=== PATIENT | male | born 1955 | race Caucasian/White ===

== ENCOUNTER 2017-12-13 12:12 | Inpatient (IN) | payer MEDICARE, OTHER ==
[~2017-12-13] VITALS: Ht 182.9 cm; Wt 98.5 kg
[2017-12-13] MEDS ORDERED: SODIUM CHLORIDE 0.9% 1,000 ML IV ONE (12:27)
[2017-12-13] MEDS ORDERED: ONDANSETRON HCL 4 MG/2 ML VIAL IV ONE (12:30)
[2017-12-13] MEDS ORDERED: MORPHINE SULFATE 4 MG/ML SYR/VIAL IV ONE (12:30)
[2017-12-13] MEDS ORDERED: diphenhdrAMINE HCL 50 MG/1 ML VL IV ONE (13:45)
[2017-12-13] MEDS ORDERED: HYDROcodone-ACET 5/325MG TAB PO PRN (14:00)
[2017-12-13] MEDS ORDERED: ONDANSETRON HCL 4 MG/2 ML VIAL IV PRN (14:00)
[2017-12-13] MEDS ORDERED: MORPHINE SULFATE 4 MG/ML SYR/VIAL IV PRN (14:00)
[2017-12-13] MEDS ORDERED: FAMOTIDINE 20 MG TAB PO ONE (14:00)
[2017-12-13 14:04] LABS: INR 0.95 (0.9-1.15); Partial Thromboplastin Time 25.3 sec (22.64-33.71); Prothrombin Time 10.4 sec (9.37-12.3)
[2017-12-13 14:06] LABS: Basophils # (auto) 0 uL; Basophils % (auto) 0.5 % (0.0-2.0); Eosinophils # (auto) 0.1 uL; Hematocrit 45.3 % (41.0-53.0); Hemoglobin 15.3 g/dL (13.5-17.5); Lymphocytes # (auto) 1.4 uL; Lymphocytes % (auto) 13.7 % (10.0-50.0); Mean Corpuscular Hemoglobin 30.5 pg (28.0-32.0); Mean Corpuscular Hgb Conc. 33.8 g/dL (32.0-36.0); Mean Corpuscular Volume 90.4 fL (80.0-100.0); Monocytes # (auto) 0.8 uL; Neutrophils # (auto) 8.1 uL; Neutrophils % (auto) 76.8 % (37.0-80.0); Platelet Count (auto) 231 10^3/uL (140-450); Red Blood Cells 5.02 10^6/uL (4.5-5.90); Red Cell Distribution Width 13.6 % (11.8-14.3); White Blood Cell 10.5 10^3/uL (4.4-10.8)
[2017-12-13 14:15] LABS: Albumin 3.6 g/dL (3.4-5.0); BUN/Creatinine Ratio 13.6; Calcium 8.6 mg/dL (8.5-10.1); Magnesium 1.8 mg/dL (1.6-2.6); Potassium 4.1 mmol/L (3.5-5.1)
[2017-12-13 14:20] LABS: Bilirubin, Total 0.9 mg/dL (0.2-1.0); Total Protein 6.9 g/dL (6.4-8.2)
[2017-12-13] MEDS: SODIUM CHLORIDE 0.9% 1,000 ML IV SCH (14:25)
[2017-12-13] MEDS ORDERED: LISI-275 PO (15:51)
[2017-12-13] MEDS ORDERED: ATOR20TA50 PO (15:51)
[2017-12-13 17:09] VITALS: BP 132/80
[2017-12-13 20:00] VITALS: BP 143/71
[2017-12-13 21:07] LABS: Urine Bacteria NONE SEEN /hpf (None Seen); Urine Blood TRACE /uL (Negative); Urine Mucus FEW (None Seen); Urine Specific Gravity 1.013 (1.001-1.035); Urine WBC 2 /hpf (0 - 3)
[2017-12-13 22:00] VITALS: BP 143/71
[2017-12-13] MEDS: ATORVASTATIN 20 MG TAB PO SCH (22:06)
[2017-12-13] MEDS: METOPROLOL TARTRATE 25 MG TAB PO SCH (22:07)
[2017-12-13] MEDS: FAMOTIDINE 20 MG TAB PO SCH (22:07)
[2017-12-14] MEDS: SODIUM CHLORIDE 0.9% 1,000 ML IV SCH (03:20)
[2017-12-14 05:00] VITALS: BP 130/87
[2017-12-14] MEDS: MORPHINE SULFATE 4 MG/ML SYR/VIAL IV PRN ×3 (06:50→08:54)
[2017-12-14 06:56] LABS: BUN/Creatinine Ratio 9.2; Calcium 8.3 mg/dL (8.5-10.1); Potassium 4.4 mmol/L (3.5-5.1)
[2017-12-14] MEDS: NITROGLYCERIN 0.4 MG SL TAB SL PRN ×3 (07:11→07:26)
[2017-12-14] MEDS ORDERED: diphenhdrAMINE HCL 50 MG/1 ML VL ONE (07:44)
[2017-12-14] MEDS ORDERED: ENOXAPARIN SOD 100 MG/1 ML SYRINGE SC ONE (07:45)
[2017-12-14] MEDS ORDERED: LORazepam 2MG/ML-1ML VIAL IV ONE (07:45)
[2017-12-14] MEDS ORDERED: diphenhdrAMINE HCL 50 MG/1 ML VL IV ONE (07:45)
[2017-12-14] MEDS ORDERED: LORazepam 2MG/ML-1ML VIAL ONE (07:47)
[2017-12-14 08:00] VITALS: BP 145/80
[2017-12-14 08:11] LABS: Alcohol, Urine < 3.0 mg/dL (0-5); Amphetamine Screen, Urine NEGATIVE (NEGATIVE); Barbiturate Scree,Urine NEGATIVE (NEGATIVE); Benzodiazephine Screen, Urine NEGATIVE (NEGATIVE); Cannabinoid Screen, Urine POSITIVE (NEGATIVE); Cocaine Screen, Urine NEGATIVE (NEGATIVE); Opiate Scree,Urine POSITIVE (NEGATIVE); Phencyclidine Screen, Urine NEGATIVE (NEGATIVE)
[2017-12-14] MEDS ORDERED: ASPirin-EC 81 mg tab PO ONE (09:15)
[2017-12-14] MEDS ORDERED: NITROGLYCERIN 50MG/250ML 250 ML IV SCH (09:30)
[2017-12-14] MEDS: METOPROLOL TARTRATE 25 MG TAB PO SCH ×2 (10:00→21:50)
[2017-12-14] MEDS: FAMOTIDINE 20 MG TAB PO SCH ×2 (10:00→21:49)
[2017-12-14] MEDS ORDERED: LIDOCAINE HCL 2 %PF INJ 10ML AMP IJ ONE (10:08)
[2017-12-14] MEDS ORDERED: IODIXANOL 320MG/ML 100ML BTL IV ONE (10:08)
[2017-12-14] MEDS ORDERED: ANGIOMAX 250 MG VIAL IV ONE (10:38)
[2017-12-14] MEDS ORDERED: MIDAZOLAM HCL 1MG/1ML-2 ML VIAL ONE ×2 (10:38→12:05)
[2017-12-14] MEDS ORDERED: fentaNYL CITRATE 100 MCG/2 ML VL ONE (10:38)
[2017-12-14] MEDS ORDERED: SODIUM CHL 0.9% 50 ML ONE (10:38)
[2017-12-14] MEDS ORDERED: VERAPAMIL 2.5MG/ML INJ 2ML VIAL IV ONE (10:43)
[2017-12-14] MEDS ORDERED: HEPARIN 1,000 UNITS/ml 1ML VIAL ONE (11:02)
[2017-12-14] MEDS ORDERED: IOHEXOL 350 MG/ML 100ML IJ ONE ×3 (11:20→12:20)
[2017-12-14] MEDS ORDERED: PRASUGREL HCL 10 MG TAB ONE (11:35)
[2017-12-14] MEDS ORDERED: EPINEPHrine HCL 1 MG/10 ML SYRG ONE (11:39)
[2017-12-14] MEDS ORDERED: ATROPINE SULF 0.5 MG/5ML SYR ONE (11:40)
[2017-12-14] MEDS ORDERED: EPTIFIBATIDE DRIP(0.75MG/ML) 0 ML IV ONE (11:42)
[2017-12-14] MEDS ORDERED: EPTIFIBATIDE INJ (2MG/ML) 10ML VIAL IV ONE (11:42)
[2017-12-14] MEDS: LISINOPRIL 10 MG TAB PO SCH (13:15)
[2017-12-14 15:00] VITALS: BP 118/76
[2017-12-14 16:06] VITALS: BP 125/76
[2017-12-14 20:30] VITALS: BP 119/70
[2017-12-14] MEDS: ATORVASTATIN 20 MG TAB PO SCH (21:50)
[2017-12-14 23:36] VITALS: BP 115/49
[2017-12-15 04:00] VITALS: BP 147/99
[2017-12-15 05:19] LABS: Basophils # (auto) 0.1 uL; Basophils % (auto) 0.8 % (0.0-2.0); Eosinophils # (auto) 0.1 uL; Eosinophils % (auto) 0.8 % (0.0-7.0); Hematocrit 42.3 % (41.0-53.0); Hemoglobin 14.5 g/dL (13.5-17.5); Lymphocytes # (auto) 2.2 uL; Mean Corpuscular Hgb Conc. 34.4 g/dL (32.0-36.0); Mean Corpuscular Volume 90.1 fL (80.0-100.0); Monocytes # (auto) 1.2 uL; Monocytes % (auto) 11.7 % (0.0-12.0); Neutrophils # (auto) 6.5 uL; Neutrophils % (auto) 64.7 % (37.0-80.0); Nucleated Red Blood Cells % 0.1 %; Platelet Count (auto) 222 10^3/uL (140-450); Red Blood Cells 4.69 10^6/uL (4.5-5.90); Red Cell Distribution Width 13.2 % (11.8-14.3); White Blood Cell 10.1 10^3/uL (4.4-10.8)
[2017-12-15 05:35] LABS: BUN/Creatinine Ratio 10.1; Calcium 8.9 mg/dL (8.5-10.1); Potassium 3.9 mmol/L (3.5-5.1)
[2017-12-15 08:00] VITALS: BP 108/72
[2017-12-15] MEDS ORDERED: PRASUGREL HCL 10 MG TAB PO SCH (10:00)
[2017-12-15] MEDS ORDERED: ASPirin 81 mg TAB PO SCH (10:00)
[2017-12-15] MEDS: FAMOTIDINE 20 MG TAB PO SCH (10:14)
[2017-12-15] MEDS: METOPROLOL TARTRATE 25 MG TAB PO SCH (10:14)
[2017-12-15] MEDS: LISINOPRIL 10 MG TAB PO SCH (11:36)
[2017-12-15 11:50] VITALS: BP 112/64
[2017-12-15 15:50] VITALS: BP 106/42
[2017-12-15 19:53] VITALS: BP 102/57
== END 2017-12-15 20:15 | disposition short-term general hospital (02) | DRG 247 ==
LOC: ER 12:12 → EDBD 12:12 → TELE 12:13 → TELE-WESTW 15:16 → ICU CENTRL 12-14 15:01 → DOU IN ICU 12-14 15:54
PROVIDERS: ADMIT Internal Medicine; ATTEND Internal Medicine
PROC: 4A023N7 Measurement of Cardiac Sampling and Pressure, Left Heart, Percutaneous Approach (ICD-10-PCS; principal; 2017-12-14)
PROC: 027034Z Dilation of Coronary Artery, One Artery with Drug-eluting Intraluminal Device, Percutaneous Approach (ICD-10-PCS; 2017-12-14)
PROC: B2111ZZ Fluoroscopy of Multiple Coronary Arteries using Low Osmolar Contrast (ICD-10-PCS; 2017-12-14)
PROC: B2151ZZ Fluoroscopy of Left Heart using Low Osmolar Contrast (ICD-10-PCS; 2017-12-14)
DX: I21.4 Non-ST elevation (NSTEMI) myocardial infarction (principal); E11.9 Type 2 diabetes mellitus without complications; E66.9 Obesity, unspecified; E78.5 Hyperlipidemia, unspecified; F17.210 Nicotine dependence, cigarettes, uncomplicated; I10 Essential (primary) hypertension; I25.10 Atherosclerotic heart disease of native coronary artery without angina pectoris; Z79.82 Long term (current) use of aspirin; Z79.899 Other long term (current) drug therapy; Z86.73 Personal history of transient ischemic attack (TIA), and cerebral infarction without residual deficits
CPT/HCPCS: 36415; 71045; 80048; 80053; 80061; 80307; 81001; 83735; 83880; 84484; 85025; 85610; 85730; 92928; 93005; 93306; 93458; 94761; 96361; 96374; 96375; 99152; 99291; C1874; J0461; J2250; J2405; Q9967

== ENCOUNTER 2024-08-31 17:48 | Emergency (ER) | payer OTHER ==
[~2024-08-31] VITALS: Ht 185.4 cm; Wt 82.0 kg
[~2024-08-31 17:48] MED LIST: ATOR20TA50 PO; LISI-275 PO
--- NOTE | 2024-08-31 18:38 | ED.PDOC ---
History of Present Illness HPI Comments 68-year-old male who comes in with chief complaint of some dizziness. The patient states that the symptoms started approximately 25 minutes prior to arrival. The patient states that he was standing and then got very very dizzy. 911 was called. When the paramedics arrived, the patient's blood pressure was 5 7/40 on scene. He denies any headache or blurred vision. An IV Hep-Lock was established. The patient was given 400 cc of normal saline and his blood pressure came up to 111/60. This time, the patient denies any other complaints of chest pain or shortness for breath. Upon arrival, the patient was still feeling somewhat weak. Chief Complaint: Dizziness Time Seen by MD: 17:50 Reviewed Notes: Nurses Notes, [employer] Product Manager Notes, Medications, Allergies (See list) Allergies: Coded Allergies: Pseudoephedrine (Verified Allergy, Severe, RASH, 12/13/17) Triprolidine (Verified Allergy, Severe, RASH, 12/13/17) Home Meds Reported Medications Atorvastatin Calcium (ATORVASTATIN CALCIUM) 20 Mg Tab, 1 TAB PO DAILY, #30 TAB 5 Refills 12/13/17 Lisinopril (Lisinopril) 5 Mg Tab, 5 MG PO DAILY for 30 Days, MG 12/13/17 Information Source: Patient, Emergency Med Personnel Mode of Arrival: EMS Severity: Moderate Timing: Minutes Duration: Since onset Prehospital treatment: Accucheck (136), Manager Cath Lab, IVF, Other (400 cc of normal saline) Associated signs and symptoms No chest pain or shortness for breath Past Medical History PAST MEDICAL HISTORY: CVA, DM, High Lipids, HTN, DE, TIA Past Medical History (Other): Prostate cancer, neuropathy Surgical History: Hernia Repair Family History Family History: Family hx of Cancer Social History Smoker: Cigarettes Alcohol: Occasionally Drugs: Marijuana Lives In: Home Constitutional: denies: chills, diaphoresis, fatigue, fever, malaise, sweats, weakness, others EENTM: denies: blurred vision, double vision, ear bleeding, ear discharge, ear drainage, ear pain, ear ringing, eye pain, eye redness, hearing loss, mouth pain, mouth swelling, nasal discharge, nose bleeding, nose congestion, nose pain, photophobia, tearing, throat pain, throat swelling, voice changes, others Respiratory: denies: cough, hemoptysis, orthopnea, SOB at rest, shortness of breath, SOB with excertion, stridor, wheezing, others Cardiovascular: denies: chest pain, dizzy spells, diaphoresis, Dyspnea on exertion, edema, irregular heart beat, left arm pain, lightheadedness, p alpitations, PND, syncope, others Gastrointestinal: denies: abdomen distended, abdominal pain, blood streaked bowels, constipated, diarrhea, dysphagia, difficulty swallowing, hematemesis, melena, nausea, poor appetite, poor fluid intake, rectal bleeding, rectal pain, vomiting, others Genitourinary: denies: burning, dysuria, flank pain, frequency, hematuria, incontinence, penile discharge, penile sore, pain, testicle pain, testicle swelling, urgency, others Neurological: reports: dizziness; denies: fainting, headache, left sided numbness, left sided weakness, numbness, paresthesia, pre-existing deficit, right sided numbness, right sided weakness, seizure, speech problems, tingling, tremors, weakness, others Musculoskeletal: denies: back pain, gout, joint pain, joint swelling, muscle pain, muscle stiffness, neck pain, others Integumetry: denies: bruises, change in color, change in hair/nails, dryness, laceration, lesions, lumps, rash, wounds, others Allergic/Immunocompromised: denies: Difficulty Healing, Frequent Infections, Hives, Itching, others Hematologic/Lymphatic: denies: anemia, blood clots, easy bleeding, easy bruising, swollen glands, others Endocrine: denies: excessive hunger, excessive sweating, excessive thirst, excessive urination, flushing, intolerance to cold, intolerance to heat, unexplained weight gain, unexplained weight loss, others Psychiatric: denies: anxiety, bipolar disorder, depression, hopeless, panic disorder, schizophrenia, sleepless, suicidal, others Physical Exam General Appearance: No Apparent Distress HEENT: Normal ENT Inspection, Pharynx Normal, TMs Normal Neck: Full Range of Motion, Non-Tender, Normal, Normal Inspection Respiratory: Chest Non-Tender, Lungs Clear, No Accessory Muscle Use, No Respiratory Distress, Normal Breath Sounds Cardiovascular: No Edema, No JVD, No Murmur, No Gallop, Normal Peripheral Pulses, Regular Rate/Rhythm Breast Exam: Deferred Gastrointestinal: No Organomegaly, Non Tender, No Pulsatile Mass, Normal Bowel Sounds, Soft Genitalia: Deferred Pelvic: Deferred Rectal: Deferred Extremities: No calf tenderness, Normal capillary refill, Normal inspection, Normal range of motion, Non-tender, No pedal edema Musculoskeletal : Apperance: Normal Neurologic: Alert, polisher aluminum II-XII nml as Tested, No Motor Deficits, Normal Affect, Normal Mood, No Sensory Deficits Cerebellar Function: Normal Reflexes: Normal Skin: Dry, Normal Color, Warm Lymphatic: No Adenopathy Was a procedure done? Was a procedure done?: No EKG EKG : Pulse Rate (adult): 62 [place]: Normal Cardiac Rhythm: NSR Block: None ST: Nonsp Differential Dx Considerations may include: Generalized weakness, dizziness, CVA, ACS, DE X-Ray, Labs, Meds, VS Vital Signs Date Time Temp Pulse Resp B/P (MAP) Pulse Ox O2 Delivery O2 Flow Rate FiO2 08/31/24 18:50 62 08/31/24 17:56 62 08/31/24 17:54 97.9 62 16 (45) 99 Lab Test 08/31/24 19:59 08/31/24 18:53 Range/Units Troponin I High Sensitivity Pending 3 L </=54 ng/L White Blood Count 6.7 4.4-10.8 10^3/uL Red Blood Count 3.98 L 4.5-5.90 10^6/uL Hemoglobin 12.6 L 13.5-17.5 g/dL Hematocrit 36.8 L 41.0-53.0 % Mean Corpuscular Volume 92.4 80.0-100.0 fL Mean Corpuscular Hemoglobin 31.5 28.0-32.0 pg Mean Corpuscular Hemoglobin Concent 34.1 32.0-36.0 g/dL Red Cell Distribution Width 14.8 H 11.8-14.3 % Platelet Count 213 140-450 10^3/uL Mean Platelet Volume 8.1 6.9-10.8 fL Neutrophils (%) (Auto) 76.6 37.0-80.0 % Lymphocytes (%) (Auto) 19.5 10.0-50.0 % Monocytes (%) (Auto) 3.0 0.0-12.0 % Eosinophils (%) (Auto) 0.0 0.0-7.0 % Basophils (%) (Auto) 0.9 0.0-2.0 % Neutrophils # (Auto) 5.1 1.6-8.6 10 ^3/uL Lymphocytes # (Auto) 1.3 0.4-5.4 10 ^3/uL Monocytes # (Auto) 0.2 0-1.3 10 ^3/uL Eosinophils # (Auto) 0 0-0.8 10 ^3/uL Basophils # (Auto) 0.1 0-0.2 10 ^3/uL Nucleated Red Blood Cells 0.1 % Sodium Level 142 136-145 mmol/L Potassium Level 4.0 3.5-5.1 mmol/L Chloride Level 107 98-107 mmol/L Carbon Dioxide Level 25 20-31 mmol/L Anion Gap 10 5-15 Blood Urea Nitrogen 12 9-23 mg/dL Creatinine 0.67 L 0.700-1.30 mg/dL Glomerular Filtration Rate Calc 103 >90 mL/min BUN/Creatinine Ratio 17.9 10.0-20.0 Serum Glucose 126 H 74-106 mg/dL Calcium Level 9.3 8.7-10.4 mg/dL PROCEDURE(s): HWOCT - HEAD WITHOUT CONTRAST IMPRESSION: 1. No acute intracranial hemorrhage. 2. No CT findings of territorial ischemia. The patient's CBC and chemistry panel are within normal limits The troponin level is negative The patient was insisting on going home. The patient states that he feels much better. The patient was completely asymptomatic We did contact [place] and the patient is authorization #[id number] (Dr. Tovar The patient was discharged IV Hep-Lock was established. Images Reviewed?: Images reviewed and evaluated by me Time of 1ST Reevaluation: 18:50 Reevaluation 1ST: Unchanged Patient Education/Counseling: Diagnosis, Treatment, Prognosis Family Education/Counseling: No Family Present Additional Information I reviewed the following notes from patient's past medical encounters: - The following tests were ordered, and results were reviewed by me: CBC,BMP, chest x-ray, troponin x 3, EKG x 3, CT head without contrast, - Additional information was gathered from interviewing the following independent Historian: EMS - I reviewed and agreed with the following test results read by other provider: radiologist - I discussed treatments and results with medical personnel and: patient Departure 1 Departure Time of Disposition: 20:07 Impression: Primary Impression: Vertigo Additional Impression: Near syncope Disposition: 01 HOME / SELF CARE / HOMELESS Condition: Fair Discharged With: Self Critical Care Note Critical Care Time?: No Stability Stability form required: No Heart Score Heart Score: Heart Score Response (Comments) Value History Slightly Suspicious 0 EKG Normal 0 Age >65 2 Risk Factors >3 or Hx ASHD 2 Troponin Normal limit 0 Total 4 I personally scribed for KACI ENG MD ([email or web address]) on 08/31/24 at 18:53. Electronically submitted by Coy Keating ([email or web address]). I personally scribed for KACI ENG MD ([email or web address]) on 08/31/24 at 19:28. Electronically submitted by Coy Keating ([email or web address]). KACI ENG MD Aug 31, 2024 18:38
--- NOTE | 2024-08-31 19:03 | DVH ---
EXAM: CT HEAD WITHOUT CONTRAST INDICATION: weakness TECHNIQUE: CT of the head without intravenous contrast. Radiation Dose Information: CT Dose: CTDI volume is 60.7 mGy. Dose-length product is 1074.74 mGy*cm The dose indicators for CT are the volume Computed Tomography (CT) Dose Index (CTDIvol) and the Dose Length Product (DLP), and are measured in units of mGy and mGy-cm, respectively. These indicators are not patient dose, but values generated from the CT scanner acquisition factors. The report includes radiation exposure data for exposures received during this examination. COMPARISON: None FINDINGS: There is no evidence of acute intracranial hemorrhage, extra-axial collection, mass effect, midline s hift, herniation or hydrocephalus. The ventricles, sulci and cisterns are age appropriate. The staley-white differentiation is intact. Patchy periventricular and subcortical white matter hypoattenuation is nonspecific but may be related to small vessel ischemic disease. The visualized paranasal sinuses and mastoid air cells are clear. The surrounding soft tissues and osseous structures are unremarkable. IMPRESSION: 1. No acute intracranial hemorrhage. 2. No CT findings of territorial ischemia.
[2024-08-31 19:07] LABS: Basophils # (auto) 0.1 10 ^3/uL (0-0.2); Basophils % (auto) 0.9 % (0.0-2.0); Eosinophils # (auto) 0 10 ^3/uL (0-0.8); Hematocrit 36.8 % (41.0-53.0); Hemoglobin 12.6 g/dL (13.5-17.5); Lymphocytes # (auto) 1.3 10 ^3/uL (0.4-5.4); Lymphocytes % (auto) 19.5 % (10.0-50.0); Mean Corpuscular Hemoglobin 31.5 pg (28.0-32.0); Mean Corpuscular Hgb Conc. 34.1 g/dL (32.0-36.0); Mean Corpuscular Volume 92.4 fL (80.0-100.0); Monocytes # (auto) 0.2 10 ^3/uL (0-1.3); Neutrophils # (auto) 5.1 10 ^3/uL (1.6-8.6); Neutrophils % (auto) 76.6 % (37.0-80.0); Nucleated Red Blood Cells % 0.1 %; Platelet Count (auto) 213 10^3/uL (140-450); Red Blood Cells 3.98 10^6/uL (4.5-5.90); Red Cell Distribution Width 14.8 % (11.8-14.3); White Blood Cell 6.7 10^3/uL (4.4-10.8)
[2024-08-31 19:35] LABS: Chloride 107 mmol/L (98-107); Sodium 142 mmol/L (136-145)
[2024-08-31 19:36] LABS: Anion Gap 10 (5-15); Calcium 9.3 mg/dL (8.7-10.4); Carbon Dioxide 25 mmol/L (20-31)
[2024-08-31 19:41] LABS: BUN/Creatinine Ratio 17.9 (10.0-20.0); Blood Urea Nitrogen 12 mg/dL (9-23)
[2024-08-31 19:43] LABS: Glucose 126 mg/dL (74-106)
[2024-08-31 21:20] VITALS: BP 126/60; PULSE 73; RESP 18; O2SAT 97
[2024-08-31] MEDS: SODIUM CHLORIDE 0.9% 500 ML IV ONE (21:22)
--- NOTE | 2024-09-01 09:28 | ECG ---
[facility] Test Date: 2024-08-31 Test Time: 17:52:29 Pat Name: ANA OWENS Department: ED Room: Gender: M Patient Financial Advocate: MARY : 1955 Requested By: KACI ENG Order Number: [id number] Reading MD: Ziggy Peres Measurements Intervals [place] Rate: 62 P: 0 ME: 0 QRS: 54 QRSD: 133 T: 54 QT: 450 QTc: 457 Interpretive Statements Normal sinus rhythm Nonspecific intraventricular conduction delay Electronically Signed On 09-01-2024 12:50:52 PST by Ziggy Peres Please click the below link to view image of tracing.
== END 2024-08-31 21:21 | disposition home or self-care (01) ==
LOC: EDBD 17:48 → ER 17:48
DX: R55 Syncope and collapse (principal); R42 Dizziness and giddiness; I10 Essential (primary) hypertension; E11.9 Type 2 diabetes mellitus without complications; E78.5 Hyperlipidemia, unspecified; I25.2 Old myocardial infarction; F17.210 Nicotine dependence, cigarettes, uncomplicated; F15.90 Other stimulant use, unspecified, uncomplicated; Z86.73 Personal history of transient ischemic attack (TIA), and cerebral infarction without residual deficits; Z85.46 Personal history of malignant neoplasm of prostate; Z98.890 Other specified postprocedural states; Z79.899 Other long term (current) drug therapy; Z88.8 Allergy status to other drugs, medicaments and biological substances
CPT/HCPCS: 36415; 70450; 80048; 84484; 85025; 93005